=== PATIENT | male | born 1940 | race Caucasian/White ===

== ENCOUNTER 2017-12-11 14:44 | Emergency (ER) | payer OTHER ==
--- NOTE | 2017-12-11 15:17 | EDPHY ---
HPI/HX/ROS/PE/MDM Narrative: CHIEF COMPLAINT: Right-sided abdominal pain HISTORY OF PRESENT ILLNESS: The patient is a 77 y/o male with a history of kidney stones complaining of sudden onset, sharp, right-sided abdominal pain radiating to the tip of his right testicle, onset at 14:00, 1.5 hours ago. When the symptoms began he also became sweaty. He then had a bowel movement and the pain subsided for 30 minutes , but returned. Since arriving to [place] he has been drinking more coffee but has not had much water. No history of kidney injury or failure. No fever, chills, chest pain, shortness of breath, palpitations, vomiting, diarrhea, urinary complaints, headache, lightheadedness. REVIEW OF SYSTEMS: Aside from elements discussed in the HPI, a comprehensive 10-point review of systems was reviewed and is negative. PAST MEDICAL HISTORY: Kidney stones x 2, non-Hodgkin's Lymphoma, hernia repair surgery as a child SOCIAL HISTORY: Brother at bedside, lives in [place], retired VITAL SIGNS: Reviewed by me GENERAL: Well-developed, well-nourished, in no respiratory distress. HEENT: Atraumatic. Eyes: No icterus, no injection. Mouth: moist mucous membranes. No erythema or lesions. Neck: supple with no adenopathy. LUNGS: Clear to auscultation bilaterally, no wheezes, rhonchi or rales. CARDIAC: Regular rate and rhythm, no rubs, murmurs or gallops. ABDOMEN: Right mid-quadrant discomfort, right lower quadrant discomfort with pain that radiates into the right inguinal region. Soft, nondistended, bowel sounds normal. BACK: No CVA tenderness. EXTREMITIES: No trauma. No edema. Range of motion is normal throughout. NEURO: Alert and oriented, grossly nonfocal. SKIN: Warm and dry, no rash. PSYCHIATRIC: Normal mentation, no agitation. Portions of this note were transcribed by a medical staff services manager. I personally performed a history, physical exam, medical decision making, and confirmed accuracy of information the transcribed note. ED Course: The patient is a 77 y/o male with a history of kidney stones presenting with sudden onset, sharp, right-sided abdominal pain radiating to the tip of his right testicle, onset at 14:00, 1.5 hours ago. On exam he has right mid- quadrant discomfort, right lower quadrant discomfort, and pain that radiates into right his inguinal region. Labs and abdominopelvic CT ordered. 1L IV NS, 100mcg IV Fentanyl, and 4mg IV Zofran administered. 1600: Spoke with radiologist, patient has a right-sided kidney stone at the UVJ. 30mg IV Toradol and 0.4mg PO Flomax administered. 1615: Reassessed patient and discussed imaging and laboratory findings. I have prescribed him Percocet, Flomax, and Zofran for his symptoms. I have advised him to follow up with his PCP when he returns home to [place]. Return precautions provided; patient is comfortable with this plan. MDM: diff dx considered included kidney stone, pyelonephritis, diverticulitis, AAA with dissection or ruptured, appendicitis, zoster. - Data Points Imaging: Discussed imaging studies w/ rn family practice Radiologist Laboratory Results: Laboratory Results 12/11/17 15:30 12/11/17 15:30 Medications Given: Discontinued Medications Fentanyl (Sublimaze) 100 mcg IVP EDNOW ONE Stop: 12/11/17 15:28 Last Admin: 12/11/17 15:37 Dose: 100 mcg Sodium Chloride (Ns) 1,000 mls @ 0 mls/hr IV EDNOW ONE; Wide Open PRN Reason: Protocol Stop: 12/11/17 15:28 Last Admin: 12/11/17 15:37 Dose: 1,000 mls Ketorolac Tromethamine (Toradol) 30 mg IVP EDNOW ONE Stop: 12/11/17 16:05 Last Admin: 12/11/17 16:14 Dose: 30 mg Ondansetron HCl (Zofran) 4 mg IVP EDNOW ONE Stop: 12/11/17 15:28 Last Admin: 12/11/17 15:37 Dose: 4 mg Tamsulosin HCl (Flomax) 0.4 mg PO EDNOW ONE Stop: 12/11/17 16:05 Last Admin: 12/11/17 16:14 Dose: 0.4 mg General Time Seen by Provider: 12/11/17 15:05 Initial Vital Signs: Initial Vital Signs Temperature (C) 36.8 C 12/11/17 14:49 Heart Rate 80 12/11/17 14:49 Respiratory Rate 18 12/11/17 14:49 Blood Pressure 136/86 H 12/11/17 14:49 O2 Sat (%) 94 12/11/17 14:49 O2 Delivery Mode Room Air Allergies/Adverse Reactions: No Known Allergies Allergy (Unverified 12/11/17 14:48) Home Medications: Medication Instructions Recorded Ondansetron HCl [Zofran] 4 mg PO Q4-6PRN PRN #15 tablet 12/11/17 Tamsulosin HCl [Flomax] 0.4 mg PO DAILY #7 cap 12/11/17 oxyCODONE/APAP 5/325 [Percocet 1 tab PO TID PRN #15 tab 12/11/17 5/325 (*)] Departure - Departure Disposition: Home, Routine, Self-Care Clinical Impression: Kidney stone on right side Condition: Good Instructions: Kidney Stones (ED), How to Strain Your Urine (ED) Additional Instructions: Most important therapy is to drink plenty of fluids and stay well hydrated. Take oxycodone as needed for severe pain. Use Zofran as needed for nausea. Take ibuprofen 600 mg every 6-8 hours as needed for moderate pain. This will also help with inflammation. Take Flomax as directed. Followup with urology when you return to [place]. Strain urine. Return to the emergency department if you have worsening pain, fevers, persistent vomiting, or other concerns. Referrals: [facility],. [Clinic] - As per Instructions Prescriptions: Ondansetron HCl [Zofran] 4 mg PO Q4-6PRN PRN #15 tablet PRN Reason: nausea oxyCODONE/APAP 5/325 [Percocet 5/325 (*)] 1 tab PO TID PRN #15 tab PRN Reason: Pain Tamsulosin HCl [Flomax] 0.4 mg PO DAILY #7 cap Report Scribed for: Peri Burger Report Scribed by: Yoselyn Del Angel Date of Report: 12/11/17 Time of Report: 15:17
[2017-12-11] MEDS ORDERED: NS 1,000 ML IV ONE (15:27)
[2017-12-11] MEDS ORDERED: ONDANSETRON 4 MG/2 ML VIAL IVP ONE (15:27)
[2017-12-11] MEDS ORDERED: fentaNYL 100 MCG/2 ML INJ IVP ONE (15:27)
[2017-12-11 15:40] LABS: PLATELET COUNT 136 10^3/uL (150-400)
[2017-12-11] MEDS ORDERED: KETOROLAC 30 MG/1 ML SDV IVP ONE (16:04)
[2017-12-11] MEDS ORDERED: TAMSULOSIN HCL 0.4 MG CAP PO ONE (16:04)
[2017-12-11 16:46] VITALS: BP 125/72
== END 2017-12-11 16:45 | disposition home or self-care (01) ==
DX: N20.0 Calculus of kidney (principal); E86.9 Volume depletion, unspecified
CPT/HCPCS: 96374; J1885; J2405; J3010